=== PATIENT | male | born 1950 | race Caucasian/White ===

== ENCOUNTER 2020-01-07 07:31 | Outpatient (CLI) | payer OTHER, SELFPAY ==
--- NOTE | ~2020-01-07 | NM_ITS ---
EXAMINATION: NM bone scan whole body DATE: 01/07/2020 10:43 INDICATION: Malignant neoplasm of the prostate TECHNIQUE: 24.8 mCi Tc-99m HDP was administered intravenously. Delayed whole-body scintigrams were o btained. COMPARISON: Right knee radiographs dated 06/24/2018, right shoulder radiographs dated 06/01/[address] dated 11/04/2014. No other more recent imaging available for comparison. FINDINGS: Symmetric mild likely degenerative joint centered uptake at the bilateral acromioclavicular joints, s ternoclavicular joints, at the patellofemoral compartments of both knees and along the bilateral acro mioclavicular joints. Mild uptake associated with a couple chronic left posterior eighth and ninth ri b fractures which can be seen on the prior CT. Small foci of uptake at the anterior left groin and al yuki the penis/scrotum likely related to urine contamination. Single atypical small focus of very subt le uptake at the posterolateral aspect of the distal right lower leg/ankle which in the absence of an y other suspicious foci of abnormal bone uptake is most likely degenerative or sequela of old trauma. IMPRESSION: 1. Single atypical small focus of very subtle uptake at the posterolateral aspect of the distal right lower leg/ankle which in the absence of any other suspicious foci of abnormal bone uptake is most li argelia degenerative or sequela of old trauma. Reviewed, dictated and finalized at location B. IMPRESSION: 1. Single atypical small focus of very subtle uptake at the posterolateral aspe ct of the distal right lower leg/ankle which in the absence of any other suspic ious foci of abnormal bone uptake is most likely degenerative or sequela of old trauma.
== END 2020-01-07 07:32 | disposition home or self-care (01) ==
PROVIDERS: PCP Family Medicine; Visit Provider Urology
DX: C61 Malignant neoplasm of prostate (principal); M89.9 Disorder of bone, unspecified
CPT/HCPCS: 78306; A9561

== ENCOUNTER 2021-09-30 06:39 | Observation (INO) | payer OTHER, SELFPAY ==
[2021-09-30] VITALS (25 sets, daily range): BP systolic 122–155; BP diastolic 60–103; PULSE 75–100; RESP 12–23; TEMP 36.3–37.1; O2SAT 95–100
--- NOTE | ~2021-09-30 | CT_ITS ---
EXAMINATION: CT abdomen pelvis wo con DATE: 09/30/2021 08:23 INDICATION: Epigastric abdominal pain. TECHNIQUE: Computed tomography (CT) of the abdomen and pelvis was performed without intravenous contr ast. Automated exposure control and iterative reconstruction technique were employed. The dose-length product was 1323.23 mGy-cm. COMPARISON: CT abdomen and pelvis 11/04/2014 FINDINGS: The visualized portions of the lung bases demonstrate mild atelectasis. No pleural effusion . The heart size is normal. There are coronary artery calcifications. No pericardial effusion. There is a small sliding hiatal hernia. The liver and spleen are normal. There are gallstones in the gallbl adder, which is distended. The pancreas, adrenal glands, and left kidney are normal. There is cortica l thinning in right kidney. There is no urolithiasis. The prostate is moderately enlarged. There are brachytherapy seeds in the prostate. There is diverticulosis of the colon without evidence of diverti culitis. The appendix is normal. There are no pathologically enlarged lymph nodes. There is no free i ntraperitoneal fluid. There is prominent fat in right inguinal canal that may be a hernia. There are old healed left rib fractures. There is mild chronic anterior wedging of multiple vertebral bodies. T here is mild thoracolumbar spondylosis. IMPRESSION: 1. Distended gallbladder with gallstones suspicious for acute cholecystitis. 2. Small sliding hiatal hernia. Reviewed, dictated and finalized at location A.
--- NOTE | ~2021-09-30 | XR_ITS ---
EXAMINATION: XR chest 2V DATE: 09/30/2021 07:13 INDICATION: Chest pain. TECHNIQUE: Frontal and lateral views of the chest were obtained. COMPARISON: CT abdomen and pelvis 11/04/2014 FINDINGS: The chest demonstrates clear lungs without pneumonia, pleural effusion, or pneumothorax. Th e heart size is normal. There is mild chronic anterior wedging of multiple vertebral bodies. IMPRESSION: 1. No acute cardiopulmonary disease. Reviewed, dictated and finalized at location A.
--- NOTE | 2021-09-30 06:47 | ECG_ITS ---
Measurements Intervals [place] Rate: 81 P: 44 DC: 182 QRS: 13 QRSD: 94 T: 21 QT: 384 QTc: 448 Interpretive Statements SINUS RHYTHM BORDERLINE T WAVE ABNORMALITY- INFERIOR LEADS BASELINE ARTIFACT- III, AVF BORDERLINE ECG Electronically Signed On 09-30-2021 7:36:04 CDT by Son Lea D.O.
[2021-09-30 06:59] LABS: Basophils Percent Auto 0.2 % (0.2-1.2); Eosinophils Absolute Auto 0.1 K/mm3 (0-0.3); Eosinophils Percent Auto 0.7 % (0-4.4); Hematocrit 42.9 % (42.0-52.0); Immature Granulocyte Absolute 0.04 K/mm3 (0.00-0.031); Immature Granulocyte Percent A 0.3 % (0-0.5); Lymphocytes Absolute Auto 1.77 K/mm3 (0.9-3.2); Lymphocytes Percent Auto 14.7 % (18.3-44.2); Mean Corpuscular HGB Conc 32.6 g/dl (32-36); Mean Corpuscular Hemoglobin 30.3 pg (26-34); Mean Corpuscular Volume 92.9 fl (80-100); Mean Platelet Volume 8.6 fl (7.4-10.4); Monocytes Absolute Auto 0.8 K/mm3 (0.1-0.6); Monocytes Percent Auto 6.5 % (2.6-8.5); Neutrophils Absolute Auto 9.4 K/mm3 (1.3-6.7); Neutrophils Percent Auto 77.6 % (45.5-73.1); Platelet Count Result 175 k/mm3 (150-375); Red Blood Count 4.62 M/mm3 (4.6-6.20); Red Cell Distribution Width 12.4 % (11.5-14.5); White Blood Count 12.1 K/mm3 (4.5-10.0)
[2021-09-30 07:10] LABS: INR 1.1; Prothrombin Time 13.3 Seconds (11.1-14.7)
[2021-09-30 07:11] LABS: Partial Thromboplastin Time 28.6 SECONDS (22.3-36.8)
[2021-09-30 07:18] LABS: Alanine Aminotransferase 38 U/L (6-50); Albumin Level 4.3 g/dL (3.5-5.1); Alkaline Phosphatase 74 U/L (38-126); Anion Gap 8 mmol/L (8-16); Aspartate Amino Transferase 64 U/L (17-59); Bilirubin,Total 0.8 mg/dL (0.2-1.3); Blood Urea Nitrogen 14 mg/dL (9-20); Calcium 8.3 mg/dL (8.4-10.2); Carbon Dioxide 23 mmol/L (22-30); Chloride 107 mmol/L (98-107); Estimated CRCL calculation 78 ml/min; Estimated Glomerular Filt Rate > 60; Glucose 163 mg/dL (65-110); Lipase 101 U/L (23-300); Sodium 138 mmol/L (137-145)
--- NOTE | 2021-09-30 07:19 | PC.NURSE ---
Patient report received from AUSTIN Hernandez. All questions answered and care of patient assumed. Patient resting quietly in stretcher with at bedside and call light within reach. VSS at this time. Patient denies CP but does c/o headache after receiving Nitro. MD notified.
[2021-09-30 07:28] LABS: Troponin I < 0.012 ng/mL (0.000-0.034)
[2021-09-30] MEDS: ACETAMINOPHEN 325 MG TABLET 650 MG PO (07:32)
--- NOTE | 2021-09-30 07:41 | ED.CHESTPAIN ---
HPI - Chest Pain General Chief Complaint: Chest Pain Stated Complaint: chest pain Time Seen by Provider: 09/30/21 07:41 Source: patient and EMS Mode of arrival: EMS Limitations: no limitations History of Present Illness HPI narrative: Patient presents with epigastric and abdominal pain woke him up from sleep at 530 this morning, squeezing, associated with nausea, denies shortness of breath, fever, chills, vomiting, diarrhea, constipation. No history of abdominal surgery. Related Data Home Medications Medication Instructions Recorded Confirmed atorvastatin 40 mg tablet tablet 09/30/21 buspirone 5 mg tablet tablet 09/30/21 duloxetine 30 mg capsule,delayed cap PO 09/30/21 release escitalopram oxalate 20 mg tablet tablet 09/30/21 memantine 10 mg tablet tablet 09/30/21 olanzapine 7.5 mg tablet tablet 09/30/21 quetiapine 50 mg tablet tablet 09/30/21 09/30/21 topiramate 50 mg tablet tablet 09/30/21 Allergies Allergy/AdvReac Type Severity Reaction Status Date / Time No Known Allergies Allergy Verified 09/30/21 06:46 Review of Systems Review of Systems: All systems reviewed & are unremarkable except as noted in HPI and below PMFSH Family History Family History Father Carcinoma of colon Family history of coronary artery disease Family history of heart disease in male family member before age 55 Family history of diabetes mellitus in first degree relative Mother Family history of diabetes mellitus in first degree relative Family history of coronary artery disease Family history of congestive heart failure Hypertension Social History Social History Smoking status: Never smoker Alcohol intake: never Exam Narrative: General appearance: Well-developed, well-nourished Skin: Normal color Head: Normocephalic, nontraumatic Eyes: Clear conjunctiva ENT: Oropharynx normal, ears normal, nose normal Neck: Supple, nontender Chest and respiratory: Airway patent, no respiratory distress, no accessory muscle use Heart: Regular rate/rhythm Abdomen: Soft, moderate upper abdominal tenderness, no guarding or rebound no organomegaly, quiet bowel sounds Vascular: Normal peripheral pulses, normal capillary refill. Musculoskeletal: Normal range of motion, nontender back Neurologic: Alert and oriented ?3, STERILE INSTRUMENT TECHNICIAN is normal as tested, no gross motor deficit Course Course Emergency Course: Stable Vital Signs Vital signs: Vital Signs Temperature 36.6 C 09/30/21 06:42 Pulse Rate 82 09/30/21 06:42 Respiratory Rate 20 09/30/21 06:42 Blood Pressure 122/65 09/30/21 06:42 Pulse Oximetry 97 09/30/21 06:42 Oxygen Delivery Room Air 09/30/21 06:42 Temperature 36.6 C 09/30/21 06:42 Pulse Rate 81 09/30/21 09:15 Respiratory Rate 17 09/30/21 09:15 Blood Pressure 125/89 09/30/21 10:00 Pulse Oximetry 96 09/30/21 10:15 Oxygen Delivery Room Air 09/30/21 06:46 MDM - Chest Pain Lab Data Result diagrams: 09/30/21 06:51 09/30/21 06:51 Labs: Lab Results 09/30/21 09/30/21 09/30/21 Range/Units 06:51 06:51 06:51 WBC 12.1 H (4.5-10.0) K/mm3 RBC 4.62 (4.6-6.20) M/mm3 Hgb 14.0 (14.0-18.0) g/dL Hct 42.9 (42.0-52.0) % MCV 92.9 (80-100) fl MCH 30.3 (26-34) pg MCHC 32.6 (32-36) g/dl RDW 12.4 (11.5-14.5) % Plt Count 175 (150-375) k/mm3 MPV 8.6 (7.4-10.4) fl Immature Gran % (Auto) 0.3 (0-0.5) % Neut % (Auto) 77.6 H (45.5-73.1) % Lymph % (Auto) 14.7 L (18.3-44.2) % [place] % (Auto) 6.5 (2.6-8.5) % Eos % (Aut
--- NOTE | 2021-09-30 07:44 | PC.NURSE ---
Dr. Campbell at bedside to assess pt.
[2021-09-30] MEDS: SODIUM CHLORIDE 0.9% IV 1,000 ML 999 ML IV CONT (08:05)
[2021-09-30] MEDS: ONDANSETRON INJ 4 MG/2 ML VIAL IV PUSH ×2 (08:05→12:25)
[2021-09-30] MEDS: HYDROmorphone HCL INJ (*CRX) 1 MG/ML SYR 0.5 MG IV PUSH ×2 (08:06→12:06)
[2021-09-30 10:04] LABS: Add Urine Microscopic? YES; Appearance Urine Clear (Clear); Bilirubin Urine Negative (Negative); Blood Urine Trace-Intact (Negative); Color Urine Yellow (Yellow); Glucose Urine UA Negative (Negative); Ketones Urine Negative (Negative); Leukocyte Esterase Ur Negative LEU/UL (Negative); Nitrate Urine Negative (Negative); Protein Urine Negative (Negative)
[2021-09-30 10:15] LABS: Mucus Urine Moderate /lpf; Squamous Epithelial Cell Urine Rare /hpf (Few); WBC Urine 0-3 /hpf
--- NOTE | 2021-09-30 10:45 | PM.IMHP ---
H&P: HPI History of Present Illness Date/Time: 09/30/21 10:45 Chief Complaint: Abdominal pain Narrative: 70yo male with history of seizures, hyperlipidemia, DM and depression/anxiety who presents to the emergency room with complaints of abdominal pain. Patient at 5:00 a.m. was woken with burning right lower quadrant abdominal pain. Over time pain radiated up the right upper quadrant and epigastric region. He denies any chest pain. He did have nausea and diaphoresis. No vomiting. No diarrhea. No cough, fever or chills. He was complaining headache. He has not been having abdominal pain recently. He has not had COVID or influenza vaccines. He has a history of diabetes but is not on medications for this. he has seizures x 5 years and he has seizure about once/week. he has not had his Keppra 1500mg Q12 yet this morning (dose verified with patient and ). He did not take any treatment at home for the abdominal pain. Patient does mention he had a heart catheterization about 4 years ago that was ?good? without severe stenosis ([facility] in 2008 noted in chart). called EMS was brought to the emergency room for evaluation. No notes from EMS available for review. On presentation, patient was hemodynamically stable. White count was 12K with glucose of 163 and AST 64 but LFTs otherwise normal. Lipase was normal. Troponin was negative x2. Urinalysis showed 6-10 red cells otherwise negative. Chest x-ray was clear. CT of the abdomen and pelvis without contrast showed gallstones in the gallbladder, distended gallbladder, moderately enlarged prostate with brachytherapy seeds noted and fat hernia in the right inguinal canal. EKG reviewed showing flattened T-waves in the inferior leads otherwise no acute ST wave changes. Patient was given Tylenol, Dilaudid Zofran, IV fluids and started on Zosyn for possible acute cholecystitis. General surgery has been consulted. Patient was admitted for further care. Review of Systems Review of Systems: All systems reviewed & are unremarkable except as noted in HPI and below PMFSH Past Medical History Medical History Dementia Depression with anxiety Diabetes mellitus Diverticulosis With history of diverticulitis Hearing loss HTN (hypertension), benign Hyperlipidemia Seizures Surgical History Surgical History (Updated 09/30/21 @ 11:28 by Alvaro Rodriguez MD) History of right inguinal hernia repair Family History Family History Father Carcinoma of colon Family history of coronary artery disease Family history of heart disease in male family member before age 55 Family history of diabetes mellitus in first degree relative Mother Family history of diabetes mellitus in first degree relative Family history of coronary artery disease Family history of congestive heart failure Hypertension Social History Social History (Updated 09/30/21 @ 11:36 by Alvaro Rodriguez MD) Social History: Patient is a lifelong nonsmoker. He should drink up to 6 beers a day but he quit alcohol altogether 5 years ago. He denies drug use. No history of IV drug use. Lives at home with his . They have a dog. His is a whale trainer so there is always more dogs around. He is a full code. He nominates his to be the individual would make medical decisions for him if he is unable Smoking status: Never smoker Alcohol intake: never Meds Home Medications and Allergies Home Medications Medication Instructions Recorded Confirmed Type levetiracetam 500 mg tablet See Rx Instructions .Route 08/29/21 Rx .COMPLEX #180 tabs atorvastatin 40 mg tablet tablet 09/30/21 History buspirone 5 mg tablet tablet 09/30/21 History duloxetine 30 mg capsule,delayed cap PO 09/30/21 History release escitalopram oxalate 20 mg tablet tablet 09/30/21 History memantine 10 mg tablet tablet
[2021-09-30] MEDS: LACTATED RINGERS 1,000 ML 200 ML IV CONT ×2 (10:47→11:41)
[2021-09-30 10:51] LABS: Troponin I < 0.012 ng/mL (0.000-0.034)
[2021-09-30 11:56] LABS: Glucose Point of Care 112 mg/dl (65-105)
--- NOTE | 2021-09-30 11:56 | ADMGEN ---
This patient, Vernon Ulloa, was admitted to [facility] Surg Room 311-01. Report received from AUSTIN Tan. Patient/family oriented to hospital policies and general routines including ID bracelet, bed and alarms, visiting hours, pain management, procedures, bathroom and other care routines, personal items, smoking policy, room service/diet, and visiting hours. Information on how to activate the Rapid Response Team has been discussed. Patient/Family are encouraged to report perceived risks to care and to ask questions if they do not understand what they are told or what they should do.
[2021-09-30 13:47] LABS: Troponin I < 0.012 ng/mL (0.000-0.034)
--- NOTE | 2021-09-30 14:24 | WPDANESEPPF ---
Anes - Initial Pre Proc Eval Procedure: Operation Date: 09/30/21 15:00 Proposed Procedures p Laparoscopic Cholecystectomy, Possible Open - Reymundo Mary DO Date/Time: 09/30/21 14:24 Surgeon: Alex Rodriguez MD Pre Op Diagnosis: Acute cholecystitis Patient Data Age: 70 Gender: M Height: 1.75 m Weight: 105.9 kg Last Vital Signs Temp 97.9 F 09/30/21 06:42 Pulse 78 09/30/21 11:01 Resp 18 09/30/21 11:01 BP 149/76 H 09/30/21 11:00 Pulse Ox 97 09/30/21 11:01 O2 Del Method Room Air 09/30/21 06:46 Allergies Allergy/AdvReac Type Severity Reaction Status Date / Time No Known Allergies Allergy Verified 09/30/21 11:58 Home Medications Medication Instructions Recorded Confirmed Type atorvastatin 40 mg tablet 40 mg PO HS 09/30/21 09/30/21 History buspirone 5 mg tablet 5 mg PO BID 09/30/21 09/30/21 History duloxetine 30 mg capsule,delayed 1 cap PO DAILY 09/30/21 09/30/21 History release escitalopram oxalate 20 mg tablet 20 mg PO DAILY 09/30/21 09/30/21 History levetiracetam 500 mg tablet 1,500 mg PO BID 09/30/21 09/30/21 History memantine 10 mg tablet 10 mg PO BID 09/30/21 09/30/21 History olanzapine 7.5 mg tablet 7.5 mg PO HS 09/30/21 09/30/21 History topiramate 50 mg tablet 50 mg PO QAM 09/30/21 09/30/21 History topiramate 50 mg tablet 100 mg PO HS 09/30/21 09/30/21 History vit A 300 mcg-C 200 mg-E 27 1 tablet PO DAILY 09/30/21 09/30/21 History mg-lutein 2 mg and minerals tablet (Ocuvite with Lutein) vitamin E 400 unit capsule 400 unit PO DAILY 09/30/21 09/30/21 History Laboratory Tests 09/30/21 09/30/21 09/30/21 06:51 06:51 06:51 WBC 12.1 K/mm3 H K/mm3 (4.5-10.0) RBC 4.62 M/mm3 M/mm3 (4.6-6.20) Hgb 14.0 g/dL g/dL (14.0-18.0) Hct 42.9 % % (42.0-52.0) MCV 92.9 fl fl (80-100) MCH 30.3 pg pg (26-34) MCHC 32.6 g/dl g/dl (32-36) RDW 12.4 % % (11.5-14.5) Plt Count 175 k/mm3 k/mm3 (150-375) MPV 8.6 fl fl (7.4-10.4) Immature Gran % (Auto) 0.3 % % (0-0.5) Neut % (Auto) 77.6 % H % (45.5-73.1) Lymph % (Auto) 14.7 % L % (18.3-44.2) [place] % (Auto) 6.5 % % (2.6-8.5) Eos % (Auto) 0.7 % % (0-4.4) Baso % (Auto) 0.2 % % (0.2-1.2) Lymph # (Auto) 1.77 K/mm3 K/mm3 (0.9-3.2) [place] # (Auto) 0.8 K/mm3 H K/mm3 (0.1-0.6) Eos # (Auto) 0.1 K/mm3 K/mm3 (0-0.3) Baso # (Auto) 0.0 K/mm3 K/mm3 (0.0-0.1) Abs Immat Gran (auto) 0.04 K/mm3 H K/mm3 (0.00-0.031) Absolute Neuts (auto) 9.4 K/mm3 H K/mm3 (1.3-6.7) Absolute Nucleated RBC 0.0 K/mm3 K/mm3 (0.0-0.012) Nucleated RBC % 0.0 % % (0.0-0.2) PT 13.3 Seconds Seconds (11.1-14.7) INR 1.1 APTT 28.6 SECONDS SECONDS (22.3-36.8) Sodium 138 mmol/L mmol/L (137-145) Potassium 4.0 mmol/L mmol/L (3.4-5.0) Chloride 107 mmol/L mmol/L (98-107) Carbon Dioxide 23 mmol/L mmol/L (22-30) Anion Gap 8 mmol/L mmol/L (8-16) BUN 14 mg/dL mg/dL (9-20) Creatinine 0.90 mg/dL mg/dL (0.7-1.3) Estim Creat Clear Calc 78 ml/min ml/min Estimated GFR > 60 (59 - ) Glucose 163 mg/dL H mg/dL (65-110) POC Capillary Glucose Calcium 8.3 mg/dL L mg/dL (8.4-10.2) Total Bilirubin 0.8 mg/dL mg/dL (0.2-1.3) AST 64 U/L H U/L (17-59) ALT 38 U/L U/L (6-50) Alkaline Phosphatase 74 U/L U/L (38-126) Troponin I < 0.012 ng/mL ng/mL (0.000-0.034) Total Protein 7.0 g/dL g/dL (6.3-8.2) Albumin 4.3 g/dL g/dL (3.5-5.1) Lipase 101 U/L U/L (23-300) Urine Color Urine Appearance Urine pH Ur Specific [place]
[2021-09-30] MEDS: LACTATED RINGERS 1,000 ML 30 ML IV CONT (14:30)
--- NOTE | 2021-09-30 14:30 | WPDHPUPDATE1 ---
History and Physical Update Update Date/Time: 09/30/21 14:30 History and Physical has been reviewed, including an updated exam of the patient. There are NO changes in the patient's condition. Risks, benefits, and alternatives have been discussed and questions answered. Patient agrees to proceed with procedure.
--- NOTE | 2021-09-30 14:30 | PM.CNGS ---
Assessment and Plan Assessment and plan (1) Acute cholecystitis: Code(s): K81.0 - Acute cholecystitis Status: Acute Assessment and Plan: I have reviewed the CT and discussed the findings with the patient. He has evidence of acute cholecystitis. I have recommended proceeding with urgent laparoscopic cholecystectomy, possible open. I discussed the procedure, risks, benefits, and alternatives. Questions were answered. Patient would like to proceed. (2) HTN (hypertension), benign: Code(s): I10 - Essential (primary) hypertension Status: Acute (3) Diabetes mellitus: Code(s): E11.9 - Type 2 diabetes mellitus without complications Status: Acute (4) Dementia: Code(s): F03.90 - Unspecified dementia without behavioral disturbance Status: Acute (5) Depression with anxiety: Code(s): F41.8 - Other specified anxiety disorders Status: Acute (6) Seizures: Code(s): R56.9 - Unspecified convulsions Status: Acute History of Present Illness Consult details Consult date: 09/30/21 Reason for consult: other (Acute cholecystitis) Requesting physician: Bahman Campbell MD Narrative: This is a 70-year-old man who presented to the emergency department this morning with right upper quadrant abdominal pain that started earlier this morning. He has had some mild intermittent abdominal pain for the past week but nothing this severe. He was experiencing nausea and vomiting as well. He cannot remember anything that he ate that would have caused this. CT of his abdomen and pelvis showed evidence of a distended gallbladder with gallstones concerning for acute cholecystitis. His white blood count was slightly elevated as well. He was admitted for further treatment. Review of Systems Review of Systems: All systems reviewed & are unremarkable except as noted in HPI and below Constitutional: Constitutional: Denies chills and Denies fever(s) Eyes: Eyes: Denies change in vision ENT: Denies hearing loss, Denies neck pain and Denies sore throat Cardiovascular: Cardiovascular: Denies chest pain and Denies dyspnea Respiratory: Respiratory: Denies cough, Denies dyspnea and Denies wheezing Gastrointestinal: Gastrointestinal: Reports as per HPI Genitourinary: Genitourinary: Denies hematuria and Denies dysuria Musculoskeletal: Musculoskeletal: Denies arthralgias, Denies joint swelling and Denies neck pain Allergic/Immunologic: Allergic/Immunologic: Denies wheezing PMFSH Past Medical History Medical History Dementia Depression with anxiety Diabetes mellitus Diverticulosis With history of diverticulitis Hearing loss HTN (hypertension), benign Hyperlipidemia Seizures Surgical History Surgical History History of right inguinal hernia repair Family History Family History Father Carcinoma of colon Family history of coronary artery disease Family history of heart disease in male family member before age 55 Family history of diabetes mellitus in first degree relative Mother Family history of diabetes mellitus in first degree relative Family history of coronary artery disease Family history of congestive heart failure Hypertension Social History Social History Social History: Patient is a lifelong nonsmoker. He should drink up to 6 beers a day but he quit alcohol altogether 5 years ago. He denies drug use. No history of IV drug use. Lives at home with his . They have a dog. His is a dog handler or trainer so there is always more dogs around. He is a full code. He nominates his to be the individual would make medical decisions for him if he is unable Smoking status: Never smoker Alcohol intake: never Substance use: never Spir
[2021-09-30 14:46] LABS: Glucose Point of Care 113 mg/dl (65-105)
[2021-09-30] MEDS: LIDO 1%/EPINEPHRINE/PF 1:200,000 30 ML VIAL INFILTRATE (15:13)
--- NOTE | 2021-09-30 15:58 | W.PM.PROC2 ---
Procedure Note - Detailed Date of Procedure 09/30/21 Pre-op Diagnosis Acute cholecystitis Post-op Diagnosis Same Procedure Performed Laparoscopic Cholecystectomy Surgeon Reymundo Mary, DO Anesthesia General and Local (0.5% bupivacaine) Indications This is a 70-year-old man who presented to the emergency department this morning with abdominal pain that started earlier this morning. He had been having pain off and on for the past week. Pain was located in the right upper quadrant. He was also having nausea and vomiting. CT in the emergency department showed evidence of acute calculous cholecystitis. He was admitted for further treatment and started on IV Zosyn. Discussions were made with the patient about treatment options and decision was made to proceed with laparoscopic cholecystectomy, possible open. Findings Laparoscopic cholecystectomy was performed. The gallbladder appeared chronically thickened with several pericholecystic adhesions. There was a least 1 small gallstone within the gallbladder. The cystic duct appeared normal in size. No other significant abnormalities were noted. The gallbladder is removed and sent to the lab for pathology. Description of Procedure Procedure as well as risks, benefits, and alternatives were discussed with patient. Written consent was obtained and placed in chart prior to procedure. The patient was brought back to surgical suite. Patient was placed in supine position on operating table. Time-out was done to confirm patient and procedure. Patient was then intubated by the anesthesia department. Abdomen was prepped and draped in sterile fashion using chlorhexidine prep. 0.5% bupivacaine with epinephrine was infiltrated at each site of incision. A 5 millimeter incision was made near the umbilicus, and a 5 millimeter Optiview trocar was advanced through the abdominal layers under direct visualization. Once inside the abdominal cavity, carbon dioxide was insufflated to create a pneumoperitoneum. The camera was inserted and the abdomen was inspected. No immediate abnormalities were identified. The patient was placed in reverse Trendelenburg position and rotated slightly to the left. An 11 millimeter incision was made in the subxiphoid region, and an 11 millimeter trocar was inserted under direct visualization. Two 5 millimeter incisions were made in the right upper quadrant, and two 5 millimeter trocars were inserted under direct visualization. The gallbladder was identified and grasped at the fundus and retracted superiorly. It was then grasped at the infundibulum retracted laterally. Careful dissection around the neck of the gallbladder was performed using blunt dissection with a [place] grasper and hook electrocautery. The cystic duct was identified, and a window was created behind it. The cystic artery was also identified and a window was created behind it. The critical view of safety was identified, visualizing the cystic duct running directly into the neck of the gallbladder, and the cystic artery running directly into the wall of the gallbladder. A 5 millimeter clip environmental property assessor was then used to place 2 clips proximally and 1 clip distally on both the cystic duct and cystic artery. They were then both transected using endoscopic scissors. Once safely away from the song hepatitis, the gallbladder was dissected free from the liver bed using hook electrocautery. Hemostasis was achieved along the way. The gallbladder was removed completely and then removed through the subxiphoid port. The liver bed was then inspected. Hemostasis appeared adequate, and our clips appeared secure. The area was gently irrigated with sterile saline. No other abnormalities were seen. The patient was flattened out in bed, and 1 final inspection was made around the abdominal cavity. The subxiphoid port was removed, and a Albin Brandon cone was used to approximate the fascia with an 0-Vicryl simple interrupted suture. The
[2021-09-30 16:11] LABS: Glucose Point of Care 152 mg/dl (65-105)
[2021-09-30] MEDS: LACTATED RINGERS 1,000 ML 100 ML IV CONT (17:31)
[2021-09-30] MEDS: MEMANTINE 10 MG TABLET PO (17:36)
[2021-09-30] MEDS: busPIRone HCL 5 MG TABLET PO (17:36)
[2021-09-30] MEDS: HYDROcodone/acetaminophen (*CRX) 5-325 MG TABLET 1 TAB PO (18:31)
[2021-09-30] MEDS: levETIRAcetam 500 MG TABLET 1500 MG PO (20:37)
[2021-09-30] MEDS: ATORVASTATIN 40 MG TABLET PO (20:37)
[2021-09-30] MEDS: TOPIRAMATE 100 MG TABLET PO (20:37)
[2021-09-30] MEDS: OLANZapine 2.5 MG TABLET 7.5 MG PO (20:38)
[2021-10-01] MEDS: HYDROcodone/acetaminophen (*CRX) 5-325 MG TABLET 1 TAB PO ×2 (01:05→10:02)
[2021-10-01 04:00] VITALS: BP 142/80; PULSE 78; RESP 18; TEMP 36.4; O2SAT 97
[2021-10-01 06:09] LABS: Hematocrit 41.6 % (42.0-52.0); Hemoglobin 13.5 g/dL (14.0-18.0); Mean Corpuscular HGB Conc 32.5 g/dl (32-36); Mean Corpuscular Hemoglobin 30.1 pg (26-34); Mean Corpuscular Volume 92.9 fl (80-100); Mean Platelet Volume 9.2 fl (7.4-10.4); Platelet Count Result 183 k/mm3 (150-375); Red Blood Count 4.48 M/mm3 (4.6-6.20); Red Cell Distribution Width 12.5 % (11.5-14.5); White Blood Count 7.9 K/mm3 (4.5-10.0)
[2021-10-01 06:21] LABS: Anion Gap 4 mmol/L (8-16); Blood Urea Nitrogen 13 mg/dL (9-20); Calcium 8.3 mg/dL (8.4-10.2); Carbon Dioxide 25 mmol/L (22-30); Chloride 111 mmol/L (98-107); Estimated CRCL calculation 71 ml/min; Estimated Glomerular Filt Rate > 60; Glucose 135 mg/dL (65-110); Potassium 4.4 mmol/L (3.4-5.0); Sodium 140 mmol/L (137-145)
[2021-10-01] MEDS: ESCITALOPRAM OXALATE 10 MG TABLET 20 MG PO (08:57)
[2021-10-01] MEDS: DULoxetine HCL 30 MG CAPSULE.DR PO (08:57)
[2021-10-01] MEDS: OPTI-GEN TAB 1 TABLET PO (08:57)
[2021-10-01] MEDS: TOPIRAMATE 25 MG TABLET 50 MG PO (08:57)
[2021-10-01] MEDS: levETIRAcetam 500 MG TABLET 1500 MG PO (08:57)
[2021-10-01] MEDS: busPIRone HCL 5 MG TABLET PO (08:57)
[2021-10-01] MEDS: MEMANTINE 10 MG TABLET PO (08:57)
--- NOTE | 2021-10-01 09:26 | PM.PNGS ---
Progress Note: A&P Assessment and Plan (1) Acute cholecystitis: Code(s): K81.0 - Acute cholecystitis Status: Acute Assessment and Plan: Doing well on POD#1. OK to discharge home today. Discussed discharge instructions with patient. Follow up in 2 weeks. (2) Dementia: Code(s): F03.90 - Unspecified dementia without behavioral disturbance Status: Acute (3) HTN (hypertension), benign: Code(s): I10 - Essential (primary) hypertension Status: Acute (4) Diabetes mellitus: Code(s): E11.9 - Type 2 diabetes mellitus without complications Status: Acute Subjective Subjective Date/Time Seen: 10/01/21 09:26 Interval history: Doing well. Tolerating diet. Pain controlled. Exam GI: Inspection: incision (intact with glue) GI Palp: Yes Soft to palpation, Yes Tenderness to palpation present (GI) (incisional) and No Guarding due to palpation present (GI) Objective Data Vital Signs Vital Signs: Vital Signs - 24 hr 09/30/21 09:30 09/30/21 09:31 09/30/21 09:45 Temperature Pulse Rate Respiratory Rate Blood Pressure 146/83 H Pulse Oximetry 99 100 98 Oxygen Delivery Oxygen Flow Rate 09/30/21 10:00 09/30/21 10:01 09/30/21 10:15 Temperature Pulse Rate Respiratory Rate Blood Pressure 125/89 Pulse Oximetry 99 100 96 Oxygen Delivery Oxygen Flow Rate 09/30/21 10:30 09/30/21 10:31 09/30/21 10:45 Temperature Pulse Rate 85 Respiratory Rate 23 H Blood Pressure 133/81 Pulse Oximetry 97 99 Oxygen Delivery Oxygen Flow Rate 09/30/21 11:00 09/30/21 11:01 09/30/21 14:25 Temperature 36.9 C Pulse Rate 82 78 85 Respiratory Rate 16 18 18 Blood Pressure 149/76 H 146/70 H Pulse Oximetry 98 97 98 Oxygen Delivery Room Air Oxygen Flow Rate 09/30/21 15:55 09/30/21 16:10 09/30/21 16:25 Temperature 36.3 C L Pulse Rate 100 81 84 Respiratory Rate 16 13 13 Blood Pressure 141/103 H 155/72 H 151/95 H Pulse Oximetry 96 100 96 Oxygen Delivery Simple Face Mask Simple Face Mask Room Air Oxygen Flow Rate 8 8 09/30/21 16:40 09/30/21 11:37 09/30/21 16:55 Temperature 36.3 C L Pulse Rate 78 75 77 Respiratory Rate 13 20 12 Blood Pressure 144/79 H 135/60 151/82 H Pulse Oximetry 95 100 95 Oxygen Delivery Room Air Room Air Oxygen Flow Rate 09/30/21 20:00 09/30/21 23:00 10/01/21 04:00 Temperature 37.1 C 36.4 C L Pulse Rate 81 78 Respiratory Rate 16 18 Blood Pressure 140/65 142/80 H Pulse Oximetry 95 97 Oxygen Delivery Room Air Oxygen Flow Rate Intake/Output Intake/Output: Intake & Output 09/28/21 09/29/21 09/30/21 10/01/21 23:59 23:59 23:59 23:59 Intake Total 3355 400 Output Total 800 1850 Balance 2555 -5480 Meds/Results Medications: Active Medications Generic Name Dose Route Start Last Admin Trade Name Freq PRN Reason Stop Dose Admin Hydrocodone Bitart/Acetaminophen 1 tab 09/30/21 17:07 10/01/21 01:05 Hydrocodone/Acetaminophen (*Crx) 5-325 Mg Tablet PO 1 tab Q4H PRN Administration Pain Rated 4-6 Atorvastatin Calcium 40 mg 09/30/21 21:00 09/30/21 20:37 Atorvastatin 40 Mg Tablet PO 40 mg HS MARIBETH Administration Buspirone HCl 5 mg 09/30/21 17:00 10/01/21 08:57 Buspirone Hcl 5 Mg Tablet PO 5 mg BID MARIBETH Administration Dextrose 12.5 gm 09/30/21 11:39 Dextrose 50% 25 Gm/50 Ml Syringe IV PUSH PRN PRN Hypoglycemia Protocol Duloxetine HCl 30 mg 10/01/21 09:00 10/01/21 08:57 Duloxetine Hcl 30 Mg Capsule.Dr PO 30 mg DAILY MARIBETH Administration Escitalopram Oxalate 20 mg 10/01/21 09:00 10/01/21 08:57 Escitalopram Oxalate 10 Mg Tablet PO 20 mg DAILY MARIBETH Administration Glucagon 1 mg 09/30/21 11:39 Glucagon For Inj 1 Mg Vial IM PRN PRN Hypoglycemia Protocol Glucose 15 gm 09/30/21 11:39 Glucose Oral Gel 15 Gm Of Glucse In 37.5 Gm Tube PO PRN PRN Hypoglyce
--- NOTE | 2021-10-01 10:04 | PM.DS ---
DS: Admitting Diagnosis Discharge Date 10/01/2021 Admitting Diagnosis Acute cholecystitis DS: Discharge Diagnosis Discharge Diagnosis Plan Acute cholecystitis DS: Summary Hospital Course Reason for hospitalization: Abdominal pain Hospital Course: 70yo male with history of seizures, hyperlipidemia, DM and depression/anxiety who presents to the emergency room with complaints of abdominal pain.? He did have nausea and diaphoresis.? No vomiting.? No diarrhea.? No cough, fever or chills.? He complained of a headache.? He has not had COVID or influenza vaccines.? He has a history of diabetes but is not on medications for this.? he has seizures x 5 years and he has seizure about once/week. . He did not take any treatment at home for the abdominal pain.? Patient does mention he had a heart catheterization about 4 years ago that was ?good? without severe stenosis ([facility] in 2008 noted in chart).? called EMS was brought to the emergency room for evaluation. a ?laparoscopic cholecystectomy was completed on 09/30/2021. Patient has been cleared for discharge by surgery instructed to follow up within 2 weeks. Patient agrees with discharge he was able to tolerate his meal and his pain is well controlled. patient's surgical site does not indicate infection. Patient denies any nausea vomiting, chest pain, palpitations, shortness of breath, or diarrhea. Status at Discharge Cognitive/behavioral status at discharge: stable Time Spent with Patient Time attestation: Total time spent providing and/or coordinating discharge services: 60 minutes Exam Narrative: General: Pleasant, no obvious distress noted HEENT: PERRLA, Mucous Membranes Moist and [place], Nares Patent, Sclera Clear Neck: JVD, Supple Pulmonary: Clear to Auscultation, Normal Air Movement Cardiovascular: No Murmurs, Gallops, or Rubs, Regular Rhythm, Regular Rate Abdominal: Abdomen Soft, Non-Distended, Normal Bowel Sounds Extremities: Normal Pulses Integumentary: 6 incisional surgical site with glue intact Neurological: Normal Gait, Normal Speech Psychological: Mental Status NL, Mood NL DS: Data Data Completed and Pending Pending studies at discharge: Pending at discharge 09/30/21 15:14 Surgical [PTH] Routine Labs on day of discharge: Labs from last 24 hours 10/01/21 10/01/21 10/01/21 05:47 05:46 05:46 WBC 7.9 RBC 4.48 L Hgb 13.5 L Hct 41.6 L MCV 92.9 MCH 30.1 MCHC 32.5 RDW 12.5 Plt Count 183 MPV 9.2 Sodium 140 Potassium 4.4 Chloride 111 H Carbon Dioxide 25 Anion Gap 4 L BUN 13 Creatinine 1.00 Estim Creat Clear Calc 71 Estimated GFR > 60 Glucose 135 H POC Capillary Glucose Hemoglobin A1c 6.0 H Calcium 8.3 L Troponin I Urine Color Urine Appearance Urine pH Ur Specific [place] Urine Protein Urine Glucose (UA) Urine Ketones Ur Blood (Man) Urine Nitrate Urine Bilirubin Urine Urobilinogen Leukocyte Esterase Rfl Urine RBC Urine WBC Ur Squamous Epith Cells Urine Mucus 09/30/21 09/30/21 09/30/21 16:08 14:44 12:46 WBC RBC Hgb Hct MCV MCH MCHC RDW Plt Count MPV Sodium Potassium Chloride Carbon Dioxide Anion Gap BUN Creatinine Estim Creat Clear Calc Estimated GFR Glucose POC Capillary Glucose 152 H 113 H Hemoglobin A1c Calcium Troponin I < 0.012 Urine Color Urine Appearance Urine pH Ur Specific [place] Urine Protein Urine Glucose (UA) Urine Ketones Ur Blood (Man) Urine Nitrate Urine Bilirubin Urine Urobilinogen Leukocyte Esterase Rfl Urine RBC Urine WBC Ur Squamous Epith Cells Urine Mucus 09/30/21 09/30/21 09/30/21 11:52 10:04 09:09 WBC RBC Hgb Hct MCV MCH MCHC RDW Plt Count MPV Sodium Potassium Chloride Carbon Dioxid
[2021-10-01 10:52] VITALS: BP 117/63; PULSE 71; RESP 18; TEMP 36.2; O2SAT 98
--- NOTE | 2021-10-01 12:52 | WPDANESPN ---
Anes - Prog Note Post-Op Date/Time: 10/01/21 12:52 Vital Signs: Last Vital Signs Temp 36.2 C L 10/01/21 10:52 Pulse 71 10/01/21 10:52 Resp 18 10/01/21 10:52 BP 117/63 10/01/21 10:52 Pulse Ox 98 10/01/21 10:52 O2 Del Method Room Air 10/01/21 08:00 O2 Flow Rate 8 09/30/21 16:10 Pain Score (VAS): 2 I/O: Intake & Output 09/30/21 10/01/21 10/01/21 23:59 07:59 15:59 Intake Total 1190 400 640 Output Total 800 1850 1450 Balance 390 -1450 -810 Laboratory Tests 10/01/21 05:46 10/01/21 05:47 09/30/21 09/30/21 09/30/21 12:46 14:44 16:08 WBC RBC Hgb Hct MCV MCH MCHC RDW Plt Count MPV Sodium Potassium Chloride Carbon Dioxide Anion Gap BUN Creatinine Estim Creat Clear Calc Estimated GFR Glucose POC Capillary Glucose 113 H 152 H Hemoglobin A1c Calcium Troponin I < 0.012 10/01/21 10/01/21 10/01/21 05:46 05:46 05:47 WBC 7.9 RBC 4.48 L Hgb 13.5 L Hct 41.6 L MCV 92.9 MCH 30.1 MCHC 32.5 RDW 12.5 Plt Count 183 MPV 9.2 Sodium 140 Potassium 4.4 Chloride 111 H Carbon Dioxide 25 Anion Gap 4 L BUN 13 Creatinine 1.00 Estim Creat Clear Calc 71 Estimated GFR > 60 Glucose 135 H POC Capillary Glucose Hemoglobin A1c 6.0 H Calcium 8.3 L Troponin I Patient Feedback: Patient satisfied with anesthetic care.
[2021-10-04 14:29] LABS: Glucose Point of Care 112 mg/dl (65-105)
[2021-10-04 14:29] LABS: Glucose Point of Care 146 mg/dl (65-105)
[2021-10-04 14:29] LABS: Glucose Point of Care 172 mg/dl (65-105)
[2021-10-04 14:29] LABS: Glucose Point of Care 161 mg/dl (65-105)
[2021-10-04 14:30] LABS: Glucose Point of Care 137 mg/dl (65-105)
== END 2021-10-01 13:20 | disposition home or self-care (01) ==
LOC: ANHED 10:29 → ANH3MEDSUR 11:32 → ANHED 17:23 → ANH3MEDSUR 10-01 10:04
PROVIDERS: Emergency Medicine; Surgery; Admitting Provider Internal Medicine; Emergency Provider Emergency Medicine; PCP Family Medicine; Visit Provider Nurse Practitioner
PROC: 0FT44ZZ Resection of Gallbladder, Percutaneous Endoscopic Approach (ICD-10-PCS; CPT 47562; principal; 2021-09-30 15:00)
DX: K80.12 Calculus of gallbladder with acute and chronic cholecystitis without obstruction (principal); E11.9 Type 2 diabetes mellitus without complications; G40.909 Epilepsy, unspecified, not intractable, without status epilepticus; F41.8 Other specified anxiety disorders; F03.90 Unspecified dementia, unspecified severity, without behavioral disturbance, psychotic disturbance, mood disturbance, and anxiety; I10 Essential (primary) hypertension; E78.5 Hyperlipidemia, unspecified
CPT/HCPCS: 47562; 36415; 71046; 74176; 80048; 80053; 81001; 82948; 83036; 83690; 84484; 85025; 85027; 85610; 85730; 88304; 93005; 96361; 96365; 96375; 96376; 99285; A9270; G0378; J1100; J1170; J1953; J2405; J2543; J2704; J2710; J3010; J7030; J7120

== ENCOUNTER 2022-04-05 12:24 | Emergency (ER) | payer OTHER, SELFPAY ==
[2022-04-05] VITALS (9 sets, daily range): BP systolic 133–144; BP diastolic 70–76; PULSE 57–68; RESP 16–20; TEMP 36.9; O2SAT 96–98
--- NOTE | ~2022-04-05 | CT_ITS ---
EXAMINATION: CT abdomen pelvis w con DATE: 04/05/2022 15:45 INDICATION: Constipation. Mid abdominal pain. TECHNIQUE: Computed tomography (CT) of the abdomen and pelvis was performed with 100 cc Omnipaque 350 intravenous contrast. The dose-length product was 683.42 mGy-cm. Automated exposure control and iter ative reconstruction technique were employed. COMPARISON: CT dated 09/30/2021. FINDINGS: Heart size is normal. No significant pleural or pericardial effusion. There is dependent at electasis. There is thickening of the distal esophagus, suspicious for esophagitis. Status post jennifer cystectomy. No discrete hepatic mass. The spleen, pancreas, adrenal glands and kidneys are unremarkab le. There are radiation therapy implant seeds in the prostate bed. There is a normal appendix. No bow el obstruction. There is bladder wall thickening. There is osteoarthritis of the hips. Mild lumbar sp ondylosis. IMPRESSION: 1. Thickened distal esophagus, suspicious for esophagitis. 2: Bladder wall thickening which may be due to outlet obstruction or cystitis. Correlate clinically. Reviewed, dictated and finalized at location A. L WORK[employer]
[2022-04-05 15:03] LABS: Basophils Percent Auto 0.3 % (0.2-1.2); Eosinophils Absolute Auto 0.1 K/mm3 (0-0.3); Eosinophils Percent Auto 1.7 % (0-4.4); Hematocrit 46.8 % (42.0-52.0); Hemoglobin 15.5 g/dL (14.0-18.0); Immature Granulocyte Absolute 0.02 K/mm3 (0.00-0.031); Immature Granulocyte Percent A 0.3 % (0-0.5); Lymphocytes Absolute Auto 2.16 K/mm3 (0.9-3.2); Lymphocytes Percent Auto 28.5 % (18.3-44.2); Mean Corpuscular HGB Conc 33.1 g/dl (32-36); Mean Corpuscular Hemoglobin 29.6 pg (26-34); Mean Corpuscular Volume 89.3 fl (80-100); Mean Platelet Volume 8.5 fl (7.4-10.4); Monocytes Absolute Auto 0.8 K/mm3 (0.1-0.6); Monocytes Percent Auto 10.8 % (2.6-8.5); Neutrophils Absolute Auto 4.4 K/mm3 (1.3-6.7); Neutrophils Percent Auto 58.4 % (45.5-73.1); Platelet Count Result 221 k/mm3 (150-375); Red Blood Count 5.24 M/mm3 (4.6-6.20); Red Cell Distribution Width 12.6 % (11.5-14.5); White Blood Count 7.6 K/mm3 (4.5-10.0)
--- NOTE | 2022-04-05 15:04 | ED.ABDPAIN ---
HPI - Abdominal Pain General Chief Complaint: Abdominal Pain Stated Complaint: unable to urinate/constipation Time Seen by Provider: 04/05/22 14:34 Source: patient Mode of arrival: ambulatory Limitations: no limitations History of Present Illness HPI narrative: Patient is a 71 y/o male who presents the ED with report of constipation and urinary retention. Patient reports he urinated this morning around 6 AM, but was unable to urinate further throughout the day. He also reports having constipation for the past 1 week. He states he usually has a bowel movement at least once or twice a day. He has been taking MiraLAX daily with no relief. He has had issues with constipation before, but denies Hx of obstruction. He reports having pain in his mid abdomen. He has not taken anything for pain. Denies any fever, nausea, vomiting, rectal bleeding, cough/cold sx's. Patient had large urine void just prior to my evaluation. Denied hematuria or dysuria. Related Data Home Medications Medication Instructions Recorded Confirmed atorvastatin 40 mg tablet 40 mg PO HS 09/30/21 10/24/21 buspirone 5 mg tablet 5 mg PO BID 09/30/21 10/24/21 duloxetine 30 mg capsule,delayed 1 cap PO DAILY 09/30/21 10/24/21 release escitalopram oxalate 20 mg tablet 20 mg PO DAILY 09/30/21 10/24/21 memantine 10 mg tablet 10 mg PO BID 09/30/21 10/24/21 topiramate 50 mg tablet 50 mg PO QAM 09/30/21 10/24/21 topiramate 50 mg tablet 100 mg PO HS 09/30/21 10/24/21 vit A 300 mcg-C 200 mg-E 27 1 tablet PO DAILY 09/30/21 10/24/21 mg-lutein 2 mg and minerals tablet (Ocuvite with Lutein) vitamin E 268 mg (400 unit) capsule 400 unit PO DAILY 09/30/21 10/24/21 mecobalamin (vitamin B12) 1,000 1,000 mcg sublingual DAILY 10/12/21 10/24/21 mcg disintegrating tablet,sublingual olanzapine 10 mg tablet 10 mg PO DAILY 10/12/21 10/24/21 Allergies Allergy/AdvReac Type Severity Reaction Status Date / Time No Known Allergies Allergy Verified 10/20/21 13:52 Review of Systems Review of Systems: CONSTITUTIONAL: Denies fever, chills, or sweats. ENT: Denies rhinorrhea, congestion, sore throat. CARDIOVASCULAR: Denies chest pain. RESPIRATORY: Denies cough or dyspnea. GASTROINTESTINAL: Reports mid abdominal pain, constipation. Denies rectal bleeding, nausea, vomiting, or diarrhea. GENITOURINARY: Reports urinary retention. Denies dysuria or hematuria. All systems reviewed & are unremarkable except as noted in HPI and below PMFSH Past Medical History Medical History Dementia Depression with anxiety Diabetes mellitus Diverticulosis With history of diverticulitis Hearing loss HTN (hypertension), benign Hyperlipidemia Seizures Surgical History Surgical History History of right inguinal hernia repair Hx of cholecystectomy (~09/30/21) Family History Family History Father Carcinoma of colon Family history of coronary artery disease Family history of heart disease in male family member before age 55 Family history of diabetes mellitus in first degree relative Mother Family history of diabetes mellitus in first degree relative Family history of coronary artery disease Family history of congestive heart failure Hypertension Social History Social History Social History: Patient is a lifelong nonsmoker. He should drink up to 6 beers a day but he quit alcohol altogether 5 years ago. He denies drug use. No history of IV drug use. Lives at home with his . They have a dog. His is a link trainer so there is always more dogs around. He is a full code. He nominates his to be the individual would make medical decisions for him if he is unable Smoking status: Never smoker Alcohol intake: never Substance use: never Spiritual
[2022-04-05 15:15] LABS: Alanine Aminotransferase 30 U/L (6-50); Albumin Level 4.6 g/dL (3.5-5.1); Alkaline Phosphatase 69 U/L (38-126); Anion Gap 6 mmol/L (8-16); Aspartate Amino Transferase 22 U/L (17-59); Bilirubin,Total 0.3 mg/dL (0.2-1.3); Blood Urea Nitrogen 11 mg/dL (9-20); Calcium 8.9 mg/dL (8.4-10.2); Carbon Dioxide 26 mmol/L (22-30); Chloride 103 mmol/L (98-107); Estimated CRCL calculation 67 ml/min; Estimated Glomerular Filt Rate > 60; Glucose 89 mg/dL (65-110); Lipase 154 U/L (23-300); Sodium 135 mmol/L (137-145)
[2022-04-05 15:16] LABS: Lactic Acid Reflex 1.4 mmol/L (0.7-2.0)
[2022-04-05 17:55] LABS: Appearance Urine Clear (Clear); Bilirubin Urine Negative (Negative); Blood Urine Trace-intact (Negative); Color Urine Yellow (Yellow); Glucose Urine UA Negative (Negative); Ketones Urine Negative (Negative); Leukocyte Esterase Ur Negative LEU/UL (Negative); Nitrate Urine Negative (Negative); Protein Urine Negative (Negative); Specific Grav Ur <= 1.005 (1.001-1.035); Urobilinogen Urine 0.2 mg/dL (<2.0)
[2022-04-05 18:02] LABS: Add Urine Microscopic? YES; Mucus Urine Rare /lpf; RBC Urine 0-2 /hpf (0-2); WBC Urine 0-3 /hpf
== END 2022-04-05 18:26 | disposition home or self-care (01) ==
PROVIDERS: Emergency Provider Physician Assistant; PCP Family Medicine
DX: K59.00 Constipation, unspecified (principal); R33.9 Retention of urine, unspecified; F03.90 Unspecified dementia, unspecified severity, without behavioral disturbance, psychotic disturbance, mood disturbance, and anxiety; F41.9 Anxiety disorder, unspecified; F32.9 Major depressive disorder, single episode, unspecified; E11.9 Type 2 diabetes mellitus without complications; I10 Essential (primary) hypertension; G40.909 Epilepsy, unspecified, not intractable, without status epilepticus; E78.5 Hyperlipidemia, unspecified
CPT/HCPCS: 36415; 74177; 80053; 81001; 83605; 83690; 85025; 99284; Q9967

== ENCOUNTER 2023-08-14 07:38 | Outpatient (CLI) | payer OTHER, SELFPAY ==
--- NOTE | ~2023-08-14 | MR_ITS ---
MRI of the brain Clinical History: Dementia Technique: Axial and sagittal T1-weighted images were acquired. These were followed by axial T2-weigh eamon, diffusion weighted, gradient, and FLAIR images. Findings: There is no acute infarct, intracranial hemorrhage, or mass lesion. There are mild chronic white matter changes in the periventricular white matter bilaterally. Ventricles and subarachnoid spaces are unremarkable. Orbits are unremarkable. Paranasal sinuses and r ight mastoid air cells are clear. There is small left mastoid effusion. Major intracranial flow voids are intact. Sagittal midline structures are intact. IMPRESSION: No acute infarct, intracranial hemorrhage, or mass lesion. Mild chronic microvascular ischemic change. Small left mastoid effusion. Reviewed, dictated and finalized at location .
== END 2023-08-14 07:39 ==
LOC: MICIMG 07:39
PROVIDERS: PCP Family Medicine; Visit Provider Student in an Organized Health Care Education/Training Program
DX: R68.89 Other general symptoms and signs (principal); F03.90 Unspecified dementia, unspecified severity, without behavioral disturbance, psychotic disturbance, mood disturbance, and anxiety; H74.8X2 Other specified disorders of left middle ear and mastoid
CPT/HCPCS: 70551

== ENCOUNTER 2023-10-24 15:53 | Emergency (ER) | payer OTHER, SELFPAY ==
--- NOTE | ~2023-10-24 | CT_ITS ---
EXAMINATION: CT abdomen pelvis wo con DATE: 10/24/2023 18:30 INDICATION: Hematuria and urinary retention TECHNIQUE: Computed tomography (CT) of the abdomen and pelvis was performed without intravenous contr ast. Automated exposure control and iterative reconstruction technique were employed. The dose-length product was 1082.82 mGy-cm. COMPARISON: 04/05/2022 FINDINGS: Lung bases are clear. Heart size is normal. Atherosclerotic coronary artery calcific location. No per icardial or pleural effusion. Small sliding-type hiatal hernia with wall thickening in the distal eso phagus suggestive of esophagitis. Cholecystectomy clips the gallbladder fossa. Liver and spleen, panc reas and bilateral adrenal glands are normal. Kidneys and ureters are normal with no urolithiasis, hy droureteronephrosis or perinephric/ureteral stranding. Bladder is normal. A few metallic densities wi thin the enlarged prostate which could represent surgical clips are brachytherapy seeds. There is mod erate colonic diverticulosis with a sigmoid predominance. There is no adjacent inflammatory change t o suggest diverticulitis. There are also couple duodenal diverticula arising from the second portion of the duodenum. A appendix. No free intraperitoneal gas or fluid. No pathologically enlarged abdomi nal or pelvic lymphadenopathy. Mild lumbar and moderate lower thoracic spondylosis. IMPRESSION: 1. No urolithiasis or acute intra-abdominal/pelvic process. 2. Small sliding-type hiatal hernia with wall thickening the distal esophagus suspicious for esophagi tis which could be related to reflux. 3. Diverticulosis. Reviewed, dictated and finalized at location A. IMPRESSION: 1. No urolithiasis or acute intra-abdominal/pelvic process. 2. Small sliding-type hiatal hernia with wall thickening the distal esophagus s uspicious for esophagitis which could be related to reflux. 3. Diverticulosis.
[2023-10-24 16:00] VITALS: BP 153/73; PULSE 79; RESP 16; TEMP 36.5; O2SAT 96
[2023-10-24 16:20] LABS: Appearance Urine Clear (Clear); Bacteria Urine None Seen /hpf; Bilirubin Urine Negative (Negative); Blood Urine 1+ (Negative); Color Urine Yellow (Yellow); Glucose Urine UA Negative (Negative); Ketones Urine Negative (Negative); Leukocyte Esterase Ur Negative LEU/UL (Negative); Nitrate Urine Negative (Negative); Non Pathogenic Casts 0-2; Protein Urine Negative (Negative); Specific Grav Ur 1.014 (1.001-1.035); Squamous Epithelial Cell Urine None Seen /hpf (Few); Urobilinogen Urine 0.2 mg/dL (<2.0); WBC Urine 0-5 /hpf (0-3); pH Urine 6.5 (5.0-9.0)
[2023-10-24 16:33] LABS: Add Urine Microscopic? YES
--- NOTE | 2023-10-24 17:56 | ED.MALEGU ---
HPI - Male Genitourinary General Chief complaint: Urogenital-Male Stated complaint: cant pee, back pain Time Seen by Provider: 10/24/23 17:48 History of Present Illness HPI Narrative: Patient is a 73-year-old male with history of hyperlipidemia urination. Patient believes he has only had small urine output each episode since at least 4-7 days ago. He notes that he only dribbles a small amount each time he urinates. He notes that since he has had decreased urination he has noted some bilateral flank pain. He denies any midline back pain. Denies any trauma. He denies any known history of prostate issues or urinary retention, he has not required a catheter in the past. He states that he saw urologist many years ago, is unsure of who was or what they were treating. He notes a subjective fever, no nausea, vomiting, diarrhea. He does note some abdominal distention and fullness. Related Data Home Medications Medication Instructions Recorded Confirmed duloxetine 30 mg capsule,delayed 1 cap PO DAILY 09/30/21 10/24/21 release escitalopram oxalate 20 mg tablet 20 mg PO DAILY 09/30/21 10/24/21 memantine 10 mg tablet 10 mg PO BID 09/30/21 10/24/21 vitamin E 268 mg (400 unit) capsule 400 unit PO DAILY 09/30/21 10/24/21 olanzapine 10 mg tablet 10 mg PO DAILY 10/12/21 10/24/21 topiramate 25 mg capsule,extended 25 mg PO TID 10/31/22 release 24 hr amlodipine 5 mg tablet 5 mg PO DAILY 06/13/23 cetirizine 10 mg tablet (Zyrtec) 10 mg PO DAILY PRN 06/13/23 cholecalciferol (vitamin D3) 50 50 mcg PO DAILY 06/13/23 mcg (2,000 unit) capsule coenzyme Q10 100 mg capsule 100 mg PO DAILY 06/13/23 (CoQ-10) losartan 50 mg tablet 50 mg PO DAILY 06/13/23 vit C 133.3 tablet PO 06/13/23 [id number]-yxjscwh-elderberry 16.7 mg chewable tablet (Emergen-C Elderberry) Allergies Allergy/AdvReac Type Severity Reaction Status Date / Time No Known Allergies Allergy Verified 06/13/23 11:03 Review of Systems Review of Systems: All systems reviewed & are unremarkable except as noted in HPI and below PMFSH Past Medical History Medical History Dementia Depression with anxiety Diabetes mellitus Diverticulosis With history of diverticulitis Hearing loss HTN (hypertension), benign Hyperlipidemia Seizures Surgical History Surgical History History of right inguinal hernia repair Hx of cholecystectomy (~09/30/21) Family History Family History Father Carcinoma of colon Family history of coronary artery disease Family history of heart disease in male family member before age 55 Family history of diabetes mellitus in first degree relative Mother Family history of diabetes mellitus in first degree relative Family history of coronary artery disease Family history of congestive heart failure Hypertension Social History Social History Social History: Patient is a lifelong nonsmoker. He should drink up to 6 beers a day but he quit alcohol altogether 5 years ago. He denies drug use. No history of IV drug use. Lives at home with his . They have a dog. His is a skills trainer so there is always more dogs around. He is a full code. He nominates his to be the individual would make medical decisions for him if he is unable Smoking status: Never smoker Alcohol intake: never Substance use: never Substance use type: does not use Do You Feel Safe in your Home?: Yes Lack of Transportation: No Lack of Food: Never True Current Housing: I Have Housing Concerned About Future Housing: No Difficulty Paying Gas/Electric Bills: No Difficulty Paying for Meds: No Currently Unemployed: No Education: Grade School Difficulty w/ Childcare or Family Care: No Living arrangements: with family Ge
[2023-10-24 18:11] VITALS: BP 158/78; PULSE 73; RESP 16; O2SAT 96
[2023-10-24 18:25] LABS: Basophils Percent Auto 0.2 % (0.2-1.2); Eosinophils Absolute Auto 0.2 K/mm3 (0-0.3); Eosinophils Percent Auto 1.5 % (0-4.4); Hematocrit 43.3 % (42.0-52.0); Hemoglobin 14.9 g/dL (14.0-18.0); Immature Granulocyte Absolute 0.06 K/mm3 (0.00-0.031); Immature Granulocyte Percent A 0.6 % (0-0.5); Lymphocytes Absolute Auto 2.34 K/mm3 (0.9-3.2); Lymphocytes Percent Auto 23.2 % (18.3-44.2); Mean Corpuscular HGB Conc 34.4 g/dl (32-36); Mean Corpuscular Volume 87.1 fl (80-100); Mean Platelet Volume 8.5 fl (7.4-10.4); Monocytes Absolute Auto 0.9 K/mm3 (0.1-0.6); Monocytes Percent Auto 8.9 % (2.6-8.5); Neutrophils Absolute Auto 6.6 K/mm3 (1.3-6.7); Neutrophils Percent Auto 65.6 % (45.5-73.1); Platelet Count Result 247 k/mm3 (150-375); Red Blood Count 4.97 M/mm3 (4.6-6.20); Red Cell Distribution Width 12.3 % (11.5-14.5); White Blood Count 10.1 K/mm3 (4.5-10.0)
[2023-10-24 18:35] LABS: Alanine Aminotransferase 28 U/L (6-50); Albumin Level 4.7 g/dL (3.5-5.1); Alkaline Phosphatase 55 U/L (38-126); Anion Gap 7 mmol/L (4-12); Aspartate Amino Transferase 23 U/L (17-59); Bilirubin,Total 0.3 mg/dL (0.2-1.3); Blood Urea Nitrogen 14 mg/dL (9-20); Calcium 9.7 mg/dL (8.4-10.2); Carbon Dioxide 29 mmol/L (22-30); Chloride 98 mmol/L (98-107); Estimated CRCL calculation 73 ml/min; Estimated Glomerular Filt Rate > 60; Glucose 139 mg/dL (65-110); Potassium 4.2 mmol/L (3.4-5.0); Sodium 134 mmol/L (137-145)
[2023-10-24 19:12] VITALS: BP 161/82; PULSE 94; RESP 16; O2SAT 100
== END 2023-10-24 20:35 | disposition home or self-care (01) ==
PROVIDERS: Emergency Provider Student in an Organized Health Care Education/Training Program; PCP Family Medicine
DX: R33.9 Retention of urine, unspecified (principal); F03.90 Unspecified dementia, unspecified severity, without behavioral disturbance, psychotic disturbance, mood disturbance, and anxiety; I10 Essential (primary) hypertension; E11.9 Type 2 diabetes mellitus without complications; E78.5 Hyperlipidemia, unspecified; F41.8 Other specified anxiety disorders; Z90.49 Acquired absence of other specified parts of digestive tract; Z79.899 Other long term (current) drug therapy
CPT/HCPCS: 36415; 74176; 80053; 81001; 85025; 99284